=== PATIENT | female | born 1945 | race Caucasian/White ===

== ENCOUNTER 2018-12-21 12:22 | Inpatient (IN) | payer MEDICARE, MEDICAID ==
[~2018-12-21] VITALS: Ht 154.9 cm; Wt 86.3 kg
[2018-12-21] MEDS ORDERED: LISI-661 PO (12:33)
[2018-12-21] MEDS ORDERED: ASPI-556 PO (12:33)
[2018-12-21 12:39] LABS: GLUCOSE,POINT OF CARE 198 MG/DL (70-110)
[2018-12-21] MEDS ORDERED: SODIUM CHLORIDE 0.9% 1,000 ML IV ONE ×2 (12:55→13:00)
[2018-12-21] MEDS ORDERED: ACETAMINOPHEN 325 MG TABLET PO ONE (13:15)
[2018-12-21 13:53] LABS: BASOPHILS % (AUTO) 0.9 % (0.0-2.0); EOSINOPHILS % (AUTO) 0.1 % (1.0-6.0); LYMPHOCYTES # (AUTO) 0.9 K/uL (1.0-4.8); LYMPHOCYTES % (AUTO) 18.2 % (22.0-44.0); MEAN CORPUSCULAR HGB CONC 33.3 G/dL (31.0-37.0); MEAN CORPUSCULAR VOLUME 93 fL (80-100); MONOCYTES % (AUTO) 18.8 % (2.0-9.0); NEUTROPHILS # (AUTO) 3.2 K/uL (1.8-7.7); PLATELET COUNT (AUTO) 167 K/uL (150-450); RED BLOOD CELL COUNT(AUTO) 3.55 MIL/uL (4.00-5.20)
[2018-12-21 14:04] LABS: PROTHROMBIN TIME 10.4 SEC (9.4-11.6)
[2018-12-21 14:05] LABS: CALCIUM, TOTAL 8.5 mg/dL (8.8-10.5); CREATININE 7.81 mg/dL (0.60-1.30); POTASSIUM 3.7 mmol/L (3.5-5.1)
[2018-12-21 14:12] LABS: BILIRUBIN,TOTAL 0.3 mg/dL (0.1-1.0); TOTAL PROTEIN, SERUM 6.9 g/dL (6.4-8.2)
[2018-12-21] MEDS ORDERED: SODIUM CHLORIDE 0.9% 500 ML IV ONE (15:15)
[2018-12-21 16:03] LABS: INFLUENZA TYPE A NEGATIVE FOR TYPE A (NEGATIVE); INFLUENZA TYPE B NEGATIVE FOR TYPE B (NEGATIVE)
[2018-12-21] MEDS ORDERED: 0.9% SODIUM CHLORIDE 10 ML SYRINGE IVP PRN (16:45)
[2018-12-21] MEDS ORDERED: ONDANSETRON HCL 4 MG/2 ML VIAL IVP PRN (16:45)
[2018-12-21] MEDS ORDERED: ACETAMINOPHEN 325 MG TABLET PO PRN (16:45)
[2018-12-21] MEDS ORDERED: CefTRIAXone 1 GM/DEXTROSE 50 ML IV ONE (18:30)
[2018-12-21 22:25] VITALS: BP 127/81
[2018-12-21] MEDS ORDERED: PNEUMOCOCCAL VACCINE POLYVALENT 0.5 ML VIAL [PPSV23] IM ONE (23:30)
[2018-12-22 00:24] VITALS: BP 134/69
[2018-12-22 05:12] VITALS: BP 143/67
[2018-12-22 06:06] LABS: BASOPHILS % (AUTO) 0.8 % (0.0-2.0); EOSINOPHILS % (AUTO) 0.9 % (1.0-6.0); HEMOGLOBIN 10.8 g/dL (12.0-16.0); LYMPHOCYTES # (AUTO) 1.2 K/uL (1.0-4.8); LYMPHOCYTES % (AUTO) 25.5 % (22.0-44.0); MEAN CORPUSCULAR HGB CONC 33.8 G/dL (31.0-37.0); MEAN CORPUSCULAR VOLUME 92 fL (80-100); MONOCYTES # (AUTO) 0.9 K/uL (0.1-1.0); MONOCYTES % (AUTO) 18.8 % (2.0-9.0); NEUTROPHILS # (AUTO) 2.5 K/uL (1.8-7.7); PLATELET COUNT (AUTO) 159 K/uL (150-450); RED CELL DISTRIBUTION WIDTH 14.3 % (11.5-14.5)
[2018-12-22 06:31] LABS: ALBUMIN 2.9 g/dL (3.4-5.0); BILIRUBIN,TOTAL 0.3 mg/dL (0.1-1.0); CALCIUM, TOTAL 8.6 mg/dL (8.8-10.5); CREATININE 8.54 mg/dL (0.60-1.30); TOTAL PROTEIN, SERUM 6.6 g/dL (6.4-8.2)
[2018-12-22 08:00] VITALS: BP 124/60
[2018-12-22] MEDS ORDERED: ASPIRIN 81 MG EC TABLET PO SCH (09:00)
== END 2018-12-22 10:38 | disposition home or self-care (01) | DRG 314 ==
LOC: EMS 12:24 → 5S 21:07
PROVIDERS: ADMIT Hospitalist; ATTEND Hospitalist
DX: I95.9 Hypotension, unspecified (principal); N18.6 End stage renal disease; I12.0 Hypertensive chronic kidney disease with stage 5 chronic kidney disease or end stage renal disease; E44.0 Moderate protein-calorie malnutrition; E11.22 Type 2 diabetes mellitus with diabetic chronic kidney disease; Z99.2 Dependence on renal dialysis; K52.9 Noninfective gastroenteritis and colitis, unspecified; D64.9 Anemia, unspecified; Z68.35 Body mass index [BMI] 35.0-35.9, adult; Z28.21 Immunization not carried out because of patient refusal
CPT/HCPCS: 70450; 83605; 87040; 87081; 87804; 93005; 96365; 99291; G0378; J0696; J7030; J7040